=== PATIENT | male | born 1965 | race Caucasian/White ===

== ENCOUNTER 2017-07-15 16:26 | Emergency (ER) | payer BC ==
[~2017-07-15] VITALS: Ht 175.3 cm; Wt 111.6 kg
[~2017-07-15 16:26] MED LIST: ESG PO; FENOFIBRATE145 M1 PO; FLO4 PO; LIPI20 PO; NORCO1 TA2 PO
[2017-07-15 16:36] VITALS: BP 142/85
== END 2017-07-15 19:58 | disposition home or self-care (01) ==
LOC: ED 16:26
DX: S93.401A Sprain of unspecified ligament of right ankle, initial encounter (principal); X50.1XXA Overexertion from prolonged static or awkward postures, initial encounter; Y93.01 Activity, walking, marching and hiking; Y92.89 Other specified places as the place of occurrence of the external cause; Y99.8 Other external cause status